=== PATIENT | male | born 1970 | race Native Hawaiian/Other Pacific Islander ===

== ENCOUNTER 2021-04-18 11:01 | Outpatient (CLI) | payer BC, OTHER ==
[2021-04-18 11:54] LABS: PLATELET COUNT 148 K/uL (142-355)
[2021-04-18 12:21] LABS: POTASSIUM 4.1 mmol/L (3.6-5.2)
== END 2021-04-18 22:06 | disposition home or self-care (01) ==
LOC: LAB 11:01
PROVIDERS: ATTEND Internal Medicine
DX: U07.1 COVID-19 (principal)
CPT/HCPCS: 36415; 80053; 82728; 83880; 85027; 85379; 86140

== ENCOUNTER 2022-04-24 15:14 | Outpatient (CLI) | payer BC ==
[2022-04-24 15:37] LABS: PLATELET COUNT 175 K/uL (142-355)
[2022-04-24 16:17] LABS: POTASSIUM 3.9 mmol/L (3.6-5.2)
== END 2022-04-24 20:57 | disposition home or self-care (01) ==
LOC: LABW 15:14
PROVIDERS: ATTEND Internal Medicine Hematology & Oncology
DX: I26.99 Other pulmonary embolism without acute cor pulmonale (principal)
CPT/HCPCS: 36415; 80053; 85027; 85379